=== PATIENT | female | born 1995 | race Caucasian/White ===

== ENCOUNTER 2016-06-30 22:22 | Observation (INO) | payer SELFPAY ==
[2016-07-01 01:27] LABS: HEMOGLOBIN 12.5 gm/dl (12.3-15.3); RED BLOOD COUNT 4.22 M/UL (4.00-5.10); WHITE BLOOD COUNT 16.1 K/UL (4.5-11.0)
[2016-07-01 01:57] LABS: BUN/CREATININE RATIO 11 (0-10)
[2016-07-01 06:07] LABS: HEMOGLOBIN 12.3 gm/dl (12.3-15.3)
[2016-07-01 14:05] LABS: HEMOGLOBIN 12.4 gm/dl (12.3-15.3)
== END 2016-07-01 16:23 | disposition home or self-care (01) ==
LOC: ER1 22:22 → OB 07-01 05:35 → ZEROF 07-01 05:35 → OB 07-01 05:35
PROVIDERS: Family Medicine; ADMIT Obstetrics & Gynecology
PROC: 0UT64ZZ Resection of Left Fallopian Tube, Percutaneous Endoscopic Approach (ICD-10-PCS; 2016-07-01)
PROC: 10T24ZZ Resection of Products of Conception, Ectopic, Percutaneous Endoscopic Approach (ICD-10-PCS; principal; 2016-07-01 09:37)
DX: O00.10 Tubal pregnancy without intrauterine pregnancy (principal); Z88.6 Allergy status to analgesic agent; Z79.899 Other long term (current) drug therapy
CPT/HCPCS: 36415; 76817; 80053; 81001; 83690; 84702; 85014; 85018; 85025; 96361; 96374; 96375; 99285; G0378; J1100; J1885; J2250; J2270; J2405; J2710; J2795; J3010; J7120